=== PATIENT | male | born 1950 | race Caucasian/White ===

== ENCOUNTER → 2017-01-05 | Outpatient (CLI) | payer MEDICARE, BC ==
--- NOTE | 2017-01-05 09:50 | KCIC ---
EXAMINATION: Magnetic resonance imaging (MRI) of the cervical spine without contrast HISTORY: Cervical spondylosis on CT. TECHNIQUE: Multiplanar multi-weighted MRI of the cervical spine was performed without intravenous contrast using the standard cervical spine protocol. Contrast information: None administered. COMPARISON: CT cervical spine August 12, 2005 FINDINGS: There is minimal anterolisthesis of C4 on C5. There is minimal retrolisthesis of C7 on T1. Modic type I endplate degenerative changes are identified at C7-T1 with disc height loss, endplate irregularity and endplate edema. There is partial osseous fusion of C4-C5 with calcification within the disc space. Modic type I endplate degenerative changes are identified at C3-C4 with disc height loss, endplate edema and endplate irregularity. Anterior marginal osteophytosis is present. No acute fracture is identified; however, if trauma is suspected, a CT scan would be a more sensitive examination for fractures. The craniocervical junction is normal. The visualized portions of the skull base and the posterior fossa are normal. The spinal cord demonstrates normal signal intensity on all sequences. No soft tissue abnormality is identified. Normal signal voids are present in the vertebral arteries. C2-C3: There is a posterior disc osteophyte complex. There is moderate left and mild right facet arthropathy. There is mild uncovertebral joint disease. There is moderate left and mild right neuroforaminal stenosis. There is mild spinal canal stenosis. C3-C4: There is a posterior disc osteophyte complex asymmetric to the right. There is moderate right and mild left facet arthropathy. There is moderate right and mild left uncovertebral joint disease. There is severe right and moderate left neuroforaminal stenosis. There is severe spinal canal stenosis. No significant cord signal alteration at this level. C4-C5: There is mild posterior disc osteophyte complex. There is severe right and moderate left facet arthropathy. There is mild to moderate uncovertebral joint disease. There is mild neuroforaminal stenosis. There is mild spinal canal stenosis.canal stenosis. C5-C6: There is moderate posterior disc osteophyte complex. There is mild right and moderate left facet arthropathy. There is moderate uncovertebral joint disease. There is moderate to severe left and mild right neuroforaminal stenosis. There is moderate to severe spinal canal stenosis. C6-C7: There is a moderate posterior disc osteophyte complex, asymmetric to the left. There is mild facet arthropathy. There is moderate, right greater than left, uncovertebral joint disease. There is severe left neuroforaminal stenosis. There is mild spinal canal stenosis. C7-T1: There is a posterior disc osteophyte complex with central disc extrusion There is mild to moderate facet arthropathy. There is moderate, left greater than right, uncovertebral joint disease. There is severe left and mild right neuroforaminal stenosis. There is mild spinal canal stenosis. IMPRESSION: 1. Advanced degenerative changes of the cervical spine, as detailed above. Findings are most severe at C3-C4 and C5-C6 with posterior disc osteophyte complexes, facet arthropathy and uncovertebral joint arthropathy resulting in moderate to severe spinal canal stenosis. No significant cord signal alteration is present. 2. Modic type I endplate degenerative changes are identified at C7-T1 with a central disc extrusion and posterior discussed by complex asymmetric to the left with associated facet and uncovertebral joint disease resulting in severe left neuroforaminal stenosis and mild spinal canal stenosis. Electronically signed by: Bryanna Upton MD (01/05/2017 9:46 AM) [facility]
== END | disposition home or self-care (01) ==
LOC: KCIC MRI 08:12
PROVIDERS: ATTEND Physician Assistant
DX: M25.78 Osteophyte, vertebrae (principal); M47.812 Spondylosis without myelopathy or radiculopathy, cervical region; M48.02 Spinal stenosis, cervical region
CPT/HCPCS: 72141

== ENCOUNTER → 2021-07-16 | Outpatient (CLI) | payer MEDICARE, BC ==
[~2021-07-16] MED LIST: DEXAMETHASONE PRES.FREE 10 MG/ML VIAL. ONE; IOHEXOL 180 MG/ML 10 ML VIAL. ONE
--- NOTE | 2021-07-16 16:11 | PDOC1 ---
INITIAL PAIN CONSULT DATE OF SERVICE: DOS: DATE: 07/16/21 TIME: 16:04 CHIEF COMPLAINT: Chief Complaint: Low back and right lower extremity pain HISTORY OF PRESENT ILLNESS: 70-year-old male presents history of pain low back right lower extremity for many years not the result of any specific injury or accident that he is aware of but is getting worse over time and becoming more painful with activity patient reports over the years she is adjusted his posture to various rotations and abilities to maneuver but has noticed that he is bracing himself more recently and has had increasing pain in the low back and right lower extremity with pain rating the posterior gluteus posterior lateral thigh lateral anterior thigh anteromedial thigh medial lower leg into the posterior calf as well as into the foot and the sole of foot patient reports its intermittent intensity but always present changes during the day worse with walking standing changing positions better with sitting or laying down wakes him from sleep at least once or twice a night patient reports is not effective bowel bladder control does affect his ability to walk and to turn in bed patient reports its sharp stabbing pain in the back can be dull and aching in the back as well as some numbness and tingling in the leg and foot and aching in the back and the leg. Patient did have an MRI scan of the lumbar spine showing central spinal stenosis marked at L4-5 with multifactorial canal narrowing to 0.3 cm AP with a small central posterior disc protrusion at L1-2 far left lateral disc osteophyte complex at L2-3 L3-4 shows posterior disc bulge disc osteophyte complex producing mass- effect on the thecal sac and lateral recesses greater on the left L4-5 showing diffuse annular disc bulge and marked arthropathy with central spinal and lateral recess stenosis moderate lateral recess stenosis as well L5-S1 shows marked right neuroforaminal stenosis with disc osteophyte complex approaching the L5 nerve root. 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 Patient has tried exercising as well as doing physical therapy which do help decrease the pain but is not decreasing completely patient reports Tylenol 3 has not been helpful as well he has been taking [id number] ibuprofen also which does help more than the Tylenol 3. Patient reports no loss of motor function but significant fatigability of the right lower extremity with standing and walking. Patient reports no bowel or bladder incontinence. PAST MEDICAL HISTORY: PMH: Hypertension, gastroesophageal reflux, arthritis, prostate hypertrophy PREVIOUS SURGERIES: Past Surgical Hx: Left femur fracture 2006 with ORIF, prostate surgery 2010 FAMILY HISTORY: Family Hx: No major medical problems or conditions that he is aware of. SOCIAL HISTORY: Social Hx: Patient drinks alcohol once or twice a week does not smoke not use any illegal illicit or recreational drugs is lives with his spouse has no children live at home and lives locally in in [facility] REVIEW OF SYSTEMS: ROS: Positive for those items mentioned in history of present illness, all systems are reviewed, otherwise negative ,and are complete full and well-documented on patient's chart. PHYSICAL EXAM: VS: Blood pressure is 149/81 pulse 68 respirations 18 temperature 98.5 F height is 5 foot 9 inches weight is 178 pounds. PE: PHYSICAL EXAMINATION: GENERAL: The patient is awake, alert, oriented, appropriate, very pleasant in demeanor HEENT: Shows normocephalic, atraumatic. Extraocular movements are intact and symmetrical. Oral cavity: Mucous membranes moist and pink. Dentition is intact. NECK: Shows anterior throat supple without palpable lymphadenopathy noted. Swallow reflex symmetrical. CHEST: Shows normal on inspection. Breath sounds are clear bilaterally, no rales rhonchi or wheezes auscultated. HEART: Shows S1, S2 clear. No murmurs auscultated. ABDOMEN: Soft, nontender, nondistended. No palpable organomegaly is noted. BACK: Shows spine grossly in the midline. Normal-appearing cervical lordotic curvature. There is slightly increased thoracic kyphosis, some minor flattening of the lumbar lordotic curvature. Lumbar paraspinous muscles show symmetrical on inspection, on palpation shows some moderate tenderness diffusely throughout the upper, middle and lower distribution of the paraspinous muscles bilaterally and also into the lower thoracic paraspinous musculature, firm and tender, but without specific trigger points, without radiation of pain. The patient has good rotational motion of the lumbar spine, both laterally as well as extension and flexion without significant difficulty. No tenderness over the spinous processes, sacrum or sacroiliac regions. EXTREMITIES: Lower extremities show deep tendon reflexes 2+ in the patellar and tendo calcaneus tendons. Motor exam is 4 on a scale of 5 with right dorsiflexion, extension, quadriceps and hamstring flexion and 5/5 on the left. Peripheral pulses are 1 posterior tibial. 1+ peripheral edema is noted bilaterally. Lower extremities are warm and dry to touch, equal in color and appearance. Straight leg raise noted to be positive on the right about 45 degrees, left side is negative. Gaenslen's and Oleg's maneuvers are negative bilaterally. The patient is able to stand, stand on his toes without difficulty or loss of balance, walks with a favoring gait favoring the right lower extremity but not use any assistive devices such as canes or walkers to ambulate. SKIN: Shows warm and dry, good turgor. No edema. No sores, rashes or bruising throughout. IMPRESSION: Impression: 70-year-old male with long history of low back right lower extremity pain worse over the past year or so and radicular fashion. MRI scan lumbar spine as noted Hypertension Arthritis Gastroesophageal reflux Plan: Options were discussed with patient including conservative managements for continued physical therapies and interventional techniques. Patient would like interventional techniques. We discussed a lumbar epidural steroid injections description as well as anatomical models to describe the procedure. Risks were discussed including but not limited to: Bleeding, infection, possibility of epidural hematoma and subsequent neurological compromise, dural puncture, headaches, spinal cord and/or nerve damage, side effects of steroid medication, and poor results regarding pain control. Patient understands and wished to proceed. Patient will return to the clinic in approximately 2 weeks for follow- up, was counseled as to return appointment, activity level, and side effect to be aware of. Procedure is lumbar epidural steroid injection under local anesthetic using sterile prep and drape at the L4-5 level using C-arm fluoroscopic guidance in both AP and lateral views medications injected is 20 mg dexamethasone +10mL preservative-free normal saline and 2 mL contrast- condition at discharge is stable patient tolerated procedure well had no complications. RAJENDRA JOYNER MD July 16, 2021 16:11
--- NOTE | 2021-07-16 16:12 | PDOC4 ---
Procedure Note: ICD 10 Code: ICD 10 Code: M54.16 M51.36 M48.06 Procedure Note: Patient was consented for lumbar epidural steroid injection with fluoroscopic guidance. Risks were discussed including but not limited to: Bleeding, infection, possibility of epidural hematoma and subsequent neurological compromise, dural puncture, headaches, spinal cord and/or nerve damage, side effects of steroid medication, and poor results regarding pain control. Patient understands and wished to proceed. Procedure is lumbar epidural steroid injection under local anesthetic using ster ile prep and drape at the L4-5 level using C-arm fluoroscopic guidance in both AP and lateral views medications injected is 20 mg dexamethasone +10mL preservative-free normal saline and 2 mL contrast- condition at discharge is stable patient tolerated procedure well had no complications. RAJENDRA JOYNER MD July 16, 2021 16:12
== END | disposition home or self-care (01) ==
LOC: PNCL 12:46
PROVIDERS: ATTEND Anesthesiology
DX: M51.16 Intervertebral disc disorders with radiculopathy, lumbar region (principal); M48.061 Spinal stenosis, lumbar region without neurogenic claudication; M79.604 Pain in right leg; I10 Essential (primary) hypertension; K21.9 Gastro-esophageal reflux disease without esophagitis; M19.90 Unspecified osteoarthritis, unspecified site; N40.0 Benign prostatic hyperplasia without lower urinary tract symptoms; Z79.899 Other long term (current) drug therapy; Z98.890 Other specified postprocedural states
CPT/HCPCS: 62323; G0463; J1100; Q9965

== ENCOUNTER → 2021-07-30 | Outpatient (CLI) | payer MEDICARE, BC ==
--- NOTE | 2021-07-30 14:23 | PDOC ---
Progress Note - Pain Clinic Date of Service: DOS: DATE: 07/30/21 TIME: 14:20 Diagnosis: Dx: Lumbar radiculopathy lumbar degenerative disease and lumbar spinal stenosis History or Present Illness: HPI: 71-year-old male returns for follow-up status post lumbar epidural steroid injection x1. Patient reports approximately 50% improvement in the low back and his right leg is doing much better than it was previously although some pain in both sides of the low back and both legs to a moderate extent the main significant pain in the right leg is now resolved patient reports pain across the low back described as tingling and constant aching sometimes dull and tight alternating and shooting in the legs and with tingling in aching in the feet bilaterally patient reports is a 5 on a scale 10 is worse over the past week to every 0 to [place] and is a 2 today. Patient reports no bowel or bladder incontinence, some fatigability in both lower extremities especially the feet, but no loss of motor function no new motor or sensory deficits. Physical Exam: VS: Blood pressure is 151/77 pulse 55 respirations 18 temperature 90.2 F height 5 feet 9 inches weight 176 pounds. PE: PHYSICAL EXAMINATION: GENERAL: The patient is awake, alert, oriented, appropriate, very pleasant in demeanor HEENT: Shows normocephalic, atraumatic. Extraocular movements are intact and symmetrical. Oral cavity: Mucous membranes moist and pink. Dentition is intact. NECK: Shows anterior throat supple without palpable lymphadenopathy noted. Swallow reflex symmetrical. CHEST: Shows normal on inspection. Breath sounds are clear bilaterally. HEART: Shows S1, S2 clear. No murmurs auscultated. ABDOMEN: Soft, nontender, nondistended. No palpable organomegaly is noted. BACK: Shows spine grossly in the midline. Normal-appearing cervical lordotic curvature. There is slightly increased thoracic kyphosis, some mild flattening of the lumbar lordotic curvature. Lumbar paraspinous muscles show symmetrical on inspection, on palpation shows some moderate tenderness diffusely throughout the upper, middle and lower distribution of the paraspinous muscles, but without specific trigger points, without radiation of pain. The patient has good rotational motion of the lumbar spine, both laterally as well as extension and flexion without significant difficulty. EXTREMITIES: Lower extremities show deep tendon reflexes 2+ in the patellar and tendo calcaneus tendons. Motor exam is 4 on a scale of 5 with right dorsiflexion, extension, quadriceps and hamstring flexion and 5/5 on the left. Peripheral pulses are 1+ posterior tibial. No peripheral edema is noted bi laterally. Lower extremities are warm and dry. SKIN: Shows warm and dry, good turgor. No edema. No sores, rashes or bruising throughout. Procedure: Procedure: Options were discussed with the patient. Patient's old chart was reviewed as her current medication regimen updated current review of systems updated today as well. We will proceed with a lumbar epidural steroid injection today with fluoroscopic guidance. Risks were discussed including but not limited to: Bleeding, infection, possibility of epidural hematoma and subsequent neurological compromise, dural puncture, headaches, spinal cord and/or nerve damage, side effects of steroid medication, and poor results regarding pain control. Patient understands and wished to proceed. Patient will return to clinic in approximately 2 weeks for follow-up, was counseled as to return appointment, activity level, and side effects to be aware of. Medication Injected: Med Injected: Procedure is lumbar epidural steroid injection under local anesthetic using sterile prep and drape at the L4-5 level using C-arm fluoroscopic guidance in both AP and lateral views medications injected is 20 mg dexamethasone +10mL preservative-free normal saline and 2 mL contrast- condition at discharge is stable patient tolerated procedure well had no complications. Condition at Discharge: Condition at Discharge: Condition at discharge is stable, patient tolerated the procedure well and had no complications. RAJENDRA JOYNER MD July 30, 2021 14:23
--- NOTE | 2021-07-30 14:24 | PDOC4 ---
Procedure Note: ICD 10 Code: ICD 10 Code: M54.16 M51.36 M48.06 Procedure Note: Patient was consented for lumbar epidural steroid injection with fluoroscopic guidance. Risks were discussed including but not limited to: Bleeding, infection, possibility of epidural hematoma and subsequent neurological compromise, dural puncture, headaches, spinal cord and/or nerve damage, side effects of steroid medication, and poor results regarding pain control. Patient understands and wished to proceed. Procedure is lumbar epidural steroid injection under local anesthetic using ster ile prep and drape at the L4-5 level using C-arm fluoroscopic guidance in both AP and lateral views medications injected is 20 mg dexamethasone +10mL preservative-free normal saline and 2 mL contrast- condition at discharge is stable patient tolerated procedure well had no complications. RAJENDRA JOYNER MD July 30, 2021 14:24
== END | disposition home or self-care (01) ==
LOC: PNCL 13:07
PROVIDERS: ATTEND Anesthesiology
DX: M51.16 Intervertebral disc disorders with radiculopathy, lumbar region (principal); M48.061 Spinal stenosis, lumbar region without neurogenic claudication
CPT/HCPCS: 62323; J1100; Q9965